=== PATIENT | female | born 1965 | race Caucasian/White ===

== ENCOUNTER 2017-09-09 05:57 | Observation (INO) | payer OTHER ==
[~2017-09-09] VITALS: Ht 172.7 cm; Wt 68.0 kg
--- NOTE | ~2017-09-09 | OP ---
[facility] [address] [place] [address] OPERATIVE REPORT Name: LYNETTEVALERIA Forrester Room: [address]#: [id number] Admission: 09/09/17 Attend Phys: Jamaal Mojica MD Discharge: Date of : 67 Report #: [id number] THIS REPORT FOR: //name// CC: [facility] DATE OF SERVICE: 09/09/2017 PROCEDURES: 1. A left lateral lobe parotidectomy with facial nerve preservation.' 2. Left supraomohyoid neck dissection. 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 SURGEON: Jamaal Mojica M.D. LEAFLET OR NEWSPAPER DELIVERER: Smith Paul M.D. ANESTHESIA: General endotracheal. ESTIMATED BLOOD LOSS: 50 mL. We used a monitor for the facial nerve, which was NIMS and we placed a 10-Prydeinig three-quarter flooded at AZRA drain to bulb collection system. The procedure was started approximately at 07:30 and finished approximately 09:50. The hard stop timeout was agreed upon. DESCRIPTION OF PROCEDURE: The patient was placed under general endotracheal anesthesia using succinylcholine for short-acting muscle relaxant. The patient received no long-acting muscle relaxers. The leads were placed for the orbicularis oculi muscle and the orbicularis sincere muscle and these were covered with Tegaderm protecting the left eye and the left corner of the mouth. The grounding electrodes for the stimulating probe were placed at the base of the left neck and these also were covered with an OpSite dressing. The face and neck were prepped with DuraPrep and this was allowed to dry. The hair had been swept out of the way by a large surgical towel. The incision had been preinjected with 1% Xylocaine and 1:100,000 epinephrine, 5 mL were utilized along the incision line. The incision was modified Juan incision and this was carried down to one of the cervical creases about 2.5 cm below [place] [address] OPERATIVE REPORT Name: VALERIA OJEDA Room: [address]#: [id number] Admission: 09/09/17 Attend Phys: Jamaal Mojica MD Discharge: Date of : 67 Report #: [id number] Once the patient was draped with sterile surgical drapes and a split sticky drape was placed over these, the incision was carried down using a 15 blade from the preauricular area to the pretragal area in the lobule area and back into the cervical area of the neck. The incision was carried through skin and subcutaneous tissue. Superficial bleeders were controlled with spatula tip cautery. Facial flap was elevated in the level of this mass, preserving the facial nerve branches. The posterior flap was elevated from the sternocleidomastoid muscle. The sternocleidomastoid muscle was delineated anteriorly and Peace clamps were placed on the parotid fascia to hold the parotid forward from the sternocleidomastoid as the tail of the parotid was freed from the sternomastoid. There was visible acinic cell carcinoma attaching itself to the sternomastoid and this was cleared using hemostats and small jaw LigaSure. The gland was rotated forward and we delineated the tragal pointer and the digastric muscle, and shortly thereafter, we found the main trunk of the facial nerve and followed it forward up the frontal zygomatic branches and cleared the tumor from the frontal and then the zygomatic branch and then the buccal and marginal branch, folding the gland forward as we dissected each branch free from the parotid and from the tumor. Inferiorly, the cervical branch was followed and then it entered an area of tumor and was sacrificed. The parotid was carefully removed and submitted as a separate specimen. The upper cervical lymph nodes were then freed as a new specimen and these contained nodes anterior to the sternocleidomastoid muscle and we followed the sternocleidomastoid down to the base of the neck and followed the transverse cervical nerves forward over the carotid artery. We sacrificed the external branch of the jugular vein and tied it off near the omohyoid muscle. All of the lymph nodes superficial to the base of neck and the carotid were swept forwards and superiorly and removed. The spinal accessory nerve was preserved. The hypoglossal nerve was preserved. Portions of the ansa cervicalis were sacrificed. The left submandibular gland was preserved, although the lymph nodes below the mandible and behind the submandibular gland were taken. There was a pocket of lymph nodes deep to the spinal accessory nerve in the corner with the digastric and the sternocleidomastoid muscles and this pocket of lymph nodes was dissected free and submitted with neck specimen. A small clip was placed in this triangle for later marker if needed by Radiation Oncology and a small clip was placed behind the main trunk of the facial nerve in an area where acinic cell carcinoma had been cleaned out above the tragal cartilage. The wound was carefully irrigated. Bipolar cautery was used for hemostasis. When hemostasis was good, a 10-Prydeinig three-quarter flooded AZRA drain was placed in the neck and into the parotid bed and sutured to the skin using a 2-0 silk suture. The wound was then closed in layers with 3-0 chromic for the initial closure of the subcutaneous and then 4-0 Monocryl for more detailed closure and then Dermabond for the skin. The wound was dressed with a fluff and Kerlix wrap around neck dressing. The patient tolerated the procedure [place] [address] OPERATIVE REPORT Name: VALERIA OJEDA Room: [address]#: [id number] Admission: 09/09/17 Attend Phys: Jamaal Mojica MD Discharge: Date of : 67 Report #: [id number] hooked up to bulb suction and she was returned to PACU in satisfactory condition. By: [id number] Mojica MD /nt
[~2017-09-09 05:57] MED LIST: ACETAMINOPHEN-1 EAC1 PO; ASPIR 8181 MG PO; IMITREX100 MG PO; LIPITOR 20 MG T20 M1 PO; NAPROSYN500 MG PO; PROTONIX 20 MG20 M1 PO; XANAX 0.5 MG0.5 MG PO; ZESTORETIC 20-1 EAC3 PO
[2017-09-09 06:41] LABS: HEMATOCRIT 33.5 % (37.0-47.0); HEMOGLOBIN 11.2 gm/dL (12.0-15.0); MCH 30.9 pg (26.0-34.0); MCHC 33.3 g/dL (28.0-37.0); MCV 92.7 fL (80.0-100.0); MPV 8.8 fl. (7.2-11.1); RBC 3.61 mil/uL (4.20-5.00); RDW-CV 13.1 % (10.5-14.5); WBC 6.4 thou/uL (4.0-11.0)
[2017-09-09 07:24] LABS: CALCIUM 8.3 mg/dL (8.5-10.1); CREATININE 0.9 mg/dL (0.6-1.3); POTASSIUM 3.8 mmol/L (3.5-5.1)
[2017-09-09 07:28] LABS: ALBUMIN 3.4 g/dL (3.4-5.0); TOTAL BILIRUBIN 0.2 mg/dL (<0.1-1.0); TOTAL PROTEIN 6.3 g/dL (6.4-8.2)
--- NOTE | 2017-09-09 10:36 | EKG ---
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: [facility] : 1965 Requested By: Jamaal Mojica Order Number: [id number] Reading MD: Dilan Mcmanus Measurements Intervals [place] Rate: 62 P: 58 PA: 160 QRS: 41 QRSD: 83 T: 50 QT: 417 QTc: 424 Interpretive Statements Sinus rhythm Abnormal R-wave progression, early transition Baseline wander in lead(s) II,V5 No previous ECG available for comparison Electronically Signed On 09-09-2017 10:36:28 NON DESTRUCTIVE TESTING SUPERVISOR by Dilan Mcmanus [email or web address] <ELECTRONICALLY SIGNED> By: Dilan Mcmanus MD, [facility] 09/09/17 1036 D: 02/625 5 Dilan Mcmanus MD, FACC /EPI
[2017-09-09 10:40] VITALS: BP 127/80
[2017-09-09 15:30] VITALS: BP 97/51
[2017-09-09 20:30] VITALS: BP 96/51
[2017-09-09 23:42] VITALS: BP 97/51
[2017-09-10 05:13] VITALS: BP 94/42
--- NOTE | 2017-09-10 05:44 | NUR ---
ALERT AND ORIENTED X4. UP AD JERI IN ROOM TO BATHROOM. . BULKY DRESSING DRY AND INTACT OVER LEFT JAW AND LEFT EAR. SPEECH SLIGHTLY SLURRED. IV PAIN MEDICATION GIVEN AND HELPFUL WITH MOUTH PAIN. NO C/O N/V. NO C/O NUMBNESS OR TINGLING. O2 SAT 99% WITH O2 AT 2L/NC. AZRA DRAIN PATENT WITH SANGUINEOUS DRAINAGE. CALL LIGHT WITHIN REACH.
[2017-09-10] MEDS ORDERED: HYDROCODON-ACE1 EAC7 PO (06:48)
[2017-09-10 12:16] VITALS: BP 96/36
--- NOTE | 2017-09-10 12:33 | NUR ---
PT DISCHARGED HOME WITH ALL BELONGINGS. PT INCISION TO LATERAL L JAW AND NECK INTACT WITH NO DRAINAGE OR REDNESS. AZRA DRAIN IN PLACE WITH SMALL AMOUNT OF SEROSANGUINOUS DRAINAGE. PAIN MEDS GIVEN ORDERED ON REQUEST. PT ACKNOWLEDGED DISCHARGE INSTRUCTIONS AND MEDICATION, SENT WITH PRESCRIPTION.
--- NOTE | 2017-09-14 16:26 | S ---
[place] [address] SURGICAL PATH RPT PROCEDURE Name: DANIELLE OJEDA Room: [facility].#: [id number] Admission: 09/09/17 Date of : 67 Discharge: 09/10/17 Report #: [id number] Path Case #: [id number] PATHOLOGY REPORT COLLECTION DATE: 09/09/2017 RECEIVED DATE: 09/09/2017 SUBMITTING PHYS: Dr. Jamaal Mojica OTHER PHYS: Dr. Rudolph Hart SPECIMEN(S) RECEIVED: A.Salivary gland B.L neck disection * * * * * * * * * * * * FINAL DIAGNOSIS: A. LEFT PAROTID: - PAROTID TISSUE WITH MULTICENTRIC DUCTAL ADENOCARCINOMA, MODERATELY DIFFERENTIATED, WITH LARGEST TUMOR NODULE MEASURING 1.7 CM, WITH ALL INKED SURFACES FREE OF INVOLVEMENT. - One benign lymph node (0/1). See comment. B. Left neck dissection: - Nineteen benign lymph nodes (0/19). See comment. COMMENT: Sections of the parotid gland (A) show at least four separate nodules of tumor with multiple additional smaller foci of tumor noted in adjacent tissues and all inked surfaces are free of involvement with the closest approximation of tumor to a surface noted in A2 where an isolated minute focus is located 0.1 mm away. The tumor nodules are characterized by large aggregates and nests of malignant cells exhibiting prominent ductal differentiation and cribriforming throughout and multiple foci of comedonecrosis are seen within tumor nodules. The smallest grossly identified nodule submitted in A5 shows similar ductal/cribriforming features and exhibits prominent features of prior biopsy including inflammation, fibrosis and stromal hemosiderin deposition and the neoplastic cells show a finely vacuolated lightly basophilic to foamy appearance within individual cells, as was identified in the prior core biopsy ([id number]), raising a consideration of acinic cell adenocarcinoma. The same foamy to granular look is seen more subtly and focally in other tumor nodules of the gland. Properly controlled PAS with and without diastase stains performed on A5 as well as mucicarmine stains performed on A5 and A1 support these intracellular findings to be mucin, supporting the classification. Several of the tumor nodules are associated with fairly scant lymphoplasmacytic tissues raising the possibility that intraglandular lymph nodes are involved. Specimens A and B reviewed with Mikey. Que Thomas and Mahendra Ortiz who [place] [address] SURGICAL PATH RPT PROCEDURE Name: DANIELLE OJEDA [facility] [id number] Admission: 09/09/17 Date of : 67 Discharge: 09/10/17 Report #: [id number] Path Case #: [id number] Preliminary findings discussed with Dr. Mojica on afternoon of 09/13/2017. (VIDHI:db; 09/13/2017) PATHOLOGIST: Bill Perry M.D. REPORT ELECTRONICALLY SIGNED BY: Bill Perry M.D. DATE/TIME: 09/14/2017 16:25 * * * * * * * * * * * * GROSS PATHOLOGY: A. Received in formalin labeled "Danielle Ojeda, left parotid" and consists of a 5.2 x 4.7 x 2.8 cm, 20 g lobulated, rubbery, yellow orange, and red pink unoriented salivary gland. The specimen is entirely inked black and serially sectioned revealing circumscribed, solid, glistening, jorge-white, and slightly translucent nodules or lesions (3 and appearing noncontiguous). They range in size from 0.7 x 0.6 x 0.6 cm to 1.9 x 1.5 x1.2 cm. The nodular lesions grossly abut several margins. The uninvolved parenchyma is lobulated, yellow orange, and shows prominent white streaks. Vascular Surgeon sections to include all of the nodules are submitted in A1-A5. A1-A2 largest, nodular lesion A3, parenchyma in between largest and second largest nodular lesion A4 second largest nodular lesion A5 smallest nodular lesion B. Received in formalin labeled "Danielle Ojeda, left neck dissection" and consists of a few irregularly-shaped, yellow, orange, and hemorrhagic fragments of adipose tissue ranging in size a 0.6 cm-3.7 cm and aggregate to 5.5 x 4.2 x 2.5 cm. Sectioning reveals several lymph node candidates ranging in size from 0.3 x 0.2 x 0.2 cm to 1.5 x 1.0 x 0.9 cm. All lymph node candidates are submitted B1-B4. (EDDIE; 09/09/2017) CLINICAL HISTORY: Parotid mass, left INITIAL CPT CODE(S): A; 40813, 54413(4) B; 86296 Professional services performed by [employer] at [facility], [address] [place] [address]. Technical services performed by [employer] at [address] [place] [address]., [address], [place] [address]. [facility] [place] [address] SURGICAL PATH RPT PROCEDURE Name: SAMANTHAEvensDANIELLE Forrester Room: [facility].#: [id number] Admission: 09/09/17 Date of : 67 Discharge: 09/10/17 Report #: [id number] Path Case #: [id number] [place] [address] PHONE: [phone] DIRECTOR: Andrés Suarez M.D. * * * END OF REPORT * * *
== END 2017-09-10 08:57 | disposition home or self-care (01) ==
LOC: M.SUR 05:57 → M.ORTHSURG 09:40 → M.SUR 10:47 → M.ORTHSURG 09-10 08:57 → M.SUR 09-10 12:33
PROVIDERS: ADMIT Specialist
DX: C07 Malignant neoplasm of parotid gland (principal); D36.0 Benign neoplasm of lymph nodes; I10 Essential (primary) hypertension; K21.9 Gastro-esophageal reflux disease without esophagitis; Z98.890 Other specified postprocedural states; Z88.2 Allergy status to sulfonamides; Z79.891 Long term (current) use of opiate analgesic; Z79.899 Other long term (current) drug therapy

== ENCOUNTER → 2017-10-05 | Outpatient (CLI) | payer OTHER ==
[~2017-10-05] MED LIST changes: +HYDROCODON-ACE1 EAC7 PO; +VALIUM5 MG PO; +ZOFRAN ODT4 MG PO
== END ==
LOC: M.CT 08:43
DX: C07 Malignant neoplasm of parotid gland (principal); J98.11 Atelectasis; M54.2 Cervicalgia; Z98.890 Other specified postprocedural states

== ENCOUNTER 2017-12-02 15:53 | Emergency (ER) | payer OTHER ==
[~2017-12-02] VITALS: Ht 172.7 cm; Wt 68.0 kg
[~2017-12-02 15:53] MED LIST changes: -VALIUM5 MG PO; -ZOFRAN ODT4 MG PO
[2017-12-02] MEDS ORDERED: ZOFRAN ODT4 MG PO ×2 (16:02→17:56)
[2017-12-02 16:21] LABS: HEMATOCRIT 38.2 % (37.0-47.0); HEMOGLOBIN 13.2 gm/dL (12.0-15.0); MCH 31.6 pg (26.0-34.0); MCHC 34.6 g/dL (28.0-37.0); MCV 91.5 fL (80.0-100.0); MPV 8.9 fl. (7.2-11.1); NUCLEATED RBCS 0 /100WBC; PLATELET COUNT* 269 thou/uL (150-400); RBC 4.17 mil/uL (4.20-5.00); RDW-CV 12.3 % (10.5-14.5)
[2017-12-02 16:25] LABS: ANION GAP 9 mmol/L (7-16); BUN 11 mg/dL (7-18); CALCIUM 9.1 mg/dL (8.5-10.1); CHLORIDE 100 mmol/L (98-107); CO2 25 mmol/L (21-32); CREATININE 0.8 mg/dL (0.6-1.3); GLUCOSE 109 mg/dL (70-99); POTASSIUM 3.5 mmol/L (3.5-5.1); SODIUM 134 mmol/L (136-145)
[2017-12-02 16:36] LABS: ALBUMIN 4.1 g/dL (3.4-5.0); ALKALINE PHOSPHATASE 66 U/L (46-116); NT-PRO BRAIN NAT PEPTIDE 99 pg/mL (<300); SGOT 26 U/L (15-37); SGPT 17 U/L (30-65); TOTAL BILIRUBIN 0.5 mg/dL (<0.1-1.0); TOTAL PROTEIN 7.9 g/dL (6.4-8.2); TROPONIN-I LEVEL <0.06 ng/mL (<0.06)
[2017-12-02 16:49] LABS: ABSOLUTE LYMPHOCYTES 0.8 thou/uL (0.8-5.3); ABSOLUTE MONOCYTES 0.4 thou/uL (0.0-1.2); ABSOLUTE NEUTROPHILS 5.9 thou/uL (1.6-8.1); PLATELET ESTIMATE ADEQUATE
[2017-12-02] MEDS ORDERED: VALIUM5 MG PO (17:56)
[2017-12-02 18:38] VITALS: BP 112/70
--- NOTE | 2017-12-03 11:31 | EKG ---
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
== END 2017-12-02 18:39 | disposition home or self-care (01) ==
LOC: M.ERS 15:53
PROVIDERS: Emergency Medicine Emergency Medical Services
DX: H81.391 Other peripheral vertigo, right ear (principal); I10 Essential (primary) hypertension; K21.9 Gastro-esophageal reflux disease without esophagitis; F41.9 Anxiety disorder, unspecified; E78.00 Pure hypercholesterolemia, unspecified; Z88.2 Allergy status to sulfonamides

== ENCOUNTER → 2018-02-01 | Outpatient (CLI) | payer OTHER ==
[~2018-02-01] MED LIST changes: +VALIUM5 MG PO; +ZOFRAN ODT4 MG PO
[2018-02-01 10:55] LABS: CHOLESTEROL 161 mg/dL (<200); GLUCOSE 99 mg/dL (70-99); HDL CHOLESTEROL 62 mg/dL (>40); LDL CHOLESTEROL 72 mg/dL (<100); TC:HDL 2.6 Ratio (Not establshd); TRIGLYCERIDE 136 mg/dL (<150); VLDL 27 mg/dL (<40)
[2018-02-01 10:58] LABS: SERUM ASSESSMENT Clear
[2018-02-02 05:15] LABS: GLYCOHEMOGLOBIN (HGB A1C) 5.3 % (4.8-5.6)
== END ==
LOC: M.LAB 10:13
PROVIDERS: Internal Medicine
DX: E78.2 Mixed hyperlipidemia (principal); R73.01 Impaired fasting glucose

== ENCOUNTER → 2018-04-27 | Outpatient (CLI) | payer OTHER | LOC: M.CT 04-21 11:00 | DX: C08.9 Malignant neoplasm of major salivary gland, unspecified (principal); I10 Essential (primary) hypertension; K21.9 Gastro-esophageal reflux disease without esophagitis; E78.00 Pure hypercholesterolemia, unspecified; F41.9 Anxiety disorder, unspecified; Z72.89 Other problems related to lifestyle ==